=== PATIENT | male | born 1990 | race Caucasian/White ===

== ENCOUNTER 2016-04-13 21:54 | Emergency (ER) | payer OTHER ==
[2016-04-13 22:09] LABS: EOSINOPHIL (%) 0.1 % (0-5); HEMATOCRIT 42.4 % (38.0-50.0); IMMATURE GRANULOCYTE (%) 0.4 % (0.0-0.7); IMMATURE GRANULOCYTE COUNT 0.5 K/uL; LYMPHOCYTE COUNT 1.8 K/uL (1.0-2.8); MCH 32.6 PG (29.0-34.0); MCHC 34.9 G/DL (30.0-36.0); MCV 93.4 FL (86-99); MEAN PLAT.VOLUME 10.1 uM^3 (9.0-12.4); MONOCYTE (%) 2.7 % (3-12); MONOCYTE COUNT 0.4 K/uL (0-0.8); NEUTROPHIL (%) 83.5 % (45-76); NEUTROPHIL COUNT 11.2 K/uL (1.8-6.4); PLATELET COUNT 151 K/uL (156-360); RBC DIS.WIDTH-CV 12.1 % (11.8-14.6); RED BLOOD COUNT 4.54 M/uL (4.00-5.50); WHITE BLOOD COUNT 13.4 K/uL (4.1-10.2)
[2016-04-13 22:32] LABS: AMYLASE 65 IU/L (1-118); CHLORIDE 103 mEq/L (99-109); POTASSIUM 3.7 mEq/L (3.7-5.4); SODIUM 140 mEq/L (136-147)
[2016-04-13 22:34] LABS: GLUCOSE 139 mg/dL (70-99)
[2016-04-13 22:35] LABS: ANION GAP 11 MEQ/L (2-14)
[2016-04-13 22:37] LABS: SERUM ETHYL ALCOHOL < 10 mg/dL
[2016-04-13 22:38] LABS: GFR ESTIMATE (CALCULATED) > 59 mL/min/
[2016-04-13 22:39] LABS: UREA NITROGEN (BUN) 21 mg/dL (9-23)
[2016-04-13 22:41] LABS: LIPASE 45 U/L (1.0-51.0)
[2016-04-14 00:13] LABS: TOTAL BILIRUBIN 0.5 mg/dL (0.0-1.0)
[2016-04-14 00:15] LABS: ALKALINE PHOSPHATASE 54 IU/L (3-129)
[2016-04-14 00:17] LABS: DIRECT BILIRUBIN 0.1 mg/dL (0.0-0.3)
== END 2016-04-14 00:44 | disposition short-term general hospital (02) ==
LOC: TRA 21:54
PROVIDERS: Emergency Medicine
DX: S36.113A Laceration of liver, unspecified degree, initial encounter (principal); S27.321A Contusion of lung, unilateral, initial encounter; S27.0XXA Traumatic pneumothorax, initial encounter; R55 Syncope and collapse; V44.6XXA Car passenger injured in collision with heavy transport vehicle or bus in traffic accident, initial encounter
CPT/HCPCS: 70450; 71260; 72125; 72129; 72132; 74177; 80048; 80076; 81003; 82150; 83690; 85025; 86850; 86900; 86901; 99281; 99285; G0480